=== PATIENT | male | born 1980 | race Caucasian/White ===

== ENCOUNTER 2018-04-12 19:43 | Emergency (ER) | payer SELFPAY ==
[2018-04-12 19:48] VITALS: BP 121/82; PULSE 61; RESP 16; TEMP 98.8; O2SAT 99
[2018-04-12] MEDS ORDERED: PROPARACAINE/FLUORESCEIN SOD 100 DROP/5 ML BOTTLE OS STA (20:32)
[2018-04-12] MEDS ORDERED: Tdap Vaccine 0.5 ml Vial (10-64 yrs) IM ONE (20:34)
[2018-04-12] MEDS ORDERED: Tobramycin 0.3% OPHT SOLN OS STA (21:08)
--- NOTE | 2018-04-12 21:15 | ED PDOC ---
HPI: Eye Injury/Pain Time Seen by Provider: 04/12/18 19:50 Chief Complaint (Nursing): Eye Problem Chief Complaint (Provider): Left Eye Injury History/Exam Limitations: no limitations Onset/Duration Of Symptoms: Hrs (3) Current Symptoms Are (Timing): Still Present Injury To Eye?: Yes Wears Contact Lens?: No Additional Complaint(s): 37 y/o male presents to the ED s/p left eye injury. Patient reports he was doing yard work when something flew into his left eye. Injury occurred 3 hours prior to arrival. He tried to use eye drops at home to help but had no relief. He complains of pain, pain with light exposure, some discharge and itchiness. Denies any fever or changes in vision. PMD: none provided Past Medical History Reviewed: Historical Data, Nursing Documentation, Vital Signs Vital Signs: Last Vital Signs Temp 98.8 F 04/12/18 19:46 Pulse 61 04/12/18 19:46 Resp 16 04/12/18 19:46 BP 121/82 04/12/18 19:46 Pulse Ox 99 04/12/18 19:46 - Medical History PMH: No Chronic Diseases Denies: HIV - Surgical History Surgical History: No Surg Hx - Family History Family History: States: Unknown Family Hx - Immunization History Hx Tetanus Toxoid Vaccination: No (unknown) - Home Medications Home Medications: Ambulatory Orders Medication Instructions Recorded Clarithromycin [Biaxin] 500 mg PO BID #20 susp.recon 12/27/15 Tobramycin 0.3% [Tobrex 0.3% Ophth 2 drop OS Q6 #1 bottle 04/12/18 Soln] - Allergies Allergies/Adverse Reactions: Allergies Allergy/AdvReac Type Severity Reaction Status Date / Time No Known Allergies Allergy Verified 12/13/14 16:56 Review of Systems ROS Statement: Except As Marked, All Systems Reviewed And Found Negative Constitutional: Negative for: Fever Eyes: Positive for: Pain (left eye), Conjunctivae Inflammation, Eyelid Inflammation, Redness, Other (itchiness and sensitivity with light exposure, some discharge). Negative for: Vision Change Physical Exam - Reviewed Nursing Documentation Reviewed: Yes Vital Signs Reviewed: Yes - Physical Exam Comments: GENERAL APPEARANCE: Patient is awake, alert, oriented x 3, in no acute distress. HEENT: (-) facial swelling and erythema, (-) facial blisters. LIDS & LASHES: (+) Mild edema of the upper left eye lid. (-) crusting of the lids PUPILS: Pupils. EOM's: Intact. LID EVERSION: (-) foreign body. CONJUNCTIVAE: Diffused conjunctivae injection of the left eye. ANTERIOR CHAMBER: (-) foreign body, (-) tear in iris, (-) hyphema. FUNDUSCOPIC: (-) foreign body, (-) hemorrhage. FLUORESCEIN: (+) 2x2m of uptake at 12 o'clock, (+) iris CHEST AND RESPIRATORY: (-) retractions, (-) rales, (-) rhonchi, (-) wheezes; breath sounds equal bilaterally. HEART AND CARDIOVASCULAR: (-) irregularity; (-) murmur, (-) gallop. - ECG O2 Sat by Pulse Oximetry: 99 (RA) Pulse Ox Interpretation: Normal Medical Decision Making Medical Decision Making: Time: 19:46 Impression: Eye irritation r/o corneal abrasion Plan: * Flucaine Eye Drops * Tetanus Shot 0.5 ml IM * Tobrex 0.3% Opthamalic Solution 2140 On re-evaluation, patient reports improvement of symptoms. On exam, patient remains AAOx3, in no acute distress. On exam, neck is supple, lungs CTA, cardiac RRR, abdomen is soft and non-tender, neuro exam shows no focal findings. VSS, stable for discharge. Diagnostic results d/w the patient in great detail. Dx of eye irritation, corneal abrasion d/w the patient. Based on history, exam and diagnostic results plan will be for discharge and outpatient follow up. Advised to follow up with primary care physician in 1-2 days without fail. Advised to take medication as prescribed. Return to the emergency room at any time for any new or worsening symptoms. Patient states he fully agrees with and understands discharge instructions. States that he agrees with the plan and disposition. Verbalized and repeated discharge instructions and plan. I have given the patient opportunity to ask any additional questions. Scribe Attestation: Documented by Bridgette Melton acting as a scribe Claribel Krueger PA-C. MD Vivasibe Attestation: All medical record entries made by the Scribe were at my direction and personally dictated by me. I have reviewed the chart and agree that the record accurately reflects my personal performance of the history, physical exam, medical decision making, and the department course for this patient. I have also personally directed, reviewed, and agree with the discharge instructions and disposition. Disposition - Clinical Impression Clinical Impression: Corneal abrasion, Eye irritation - Patient ED Disposition Is Patient to be Admitted: No Counseled Patient/Family Regarding: Studies Performed, Diagnosis, Need For Followup, Rx Given - Disposition Referrals: [facility] [Outside] Ata Nagy MD [Staff Provider] - Disposition: Routine/Home Disposition Time: 21:45 Condition: STABLE Additional Instructions: FOLLOW UP WITH CLINIC/OPHTHO IN 1-2 DAYS WITHOUT FAIL. RETURN TO ED WITH ANY NEW OR WORSENING SYMPTOMS. Prescriptions: Tobramycin 0.3% [Tobrex 0.3% Ophth Soln] 2 drop OS Q6 #1 bottle Instructions: Corneal Abrasion Forms: [facility] ([employer]) Print Language: PORTUGUESE - [place] Present On Arrival: None
== END 2018-04-12 21:58 | disposition home or self-care (01) ==
LOC: H.ER 19:43
DX: S05.02XA Injury of conjunctiva and corneal abrasion without foreign body, left eye, initial encounter (principal); Y92.89 Other specified places as the place of occurrence of the external cause